=== PATIENT | female | born 1995 | race Two or more races ===

== ENCOUNTER → 2024-08-22 | Outpatient (CLI) | payer BC, SELFPAY ==
[2024-08-22 08:41] LABS: Glucose Estimated Average 97 mg/dL (80-131)
[2024-08-22 08:53] LABS: Alanine Aminotransferase 23 U/L (10-49); Albumin, Serum 4.2 gm/dL (3.5-5.0); Albumin/Globulin Ratio 1.9 (1.2-2.2); Alkaline Phosphatase 75 U/L (46-116); Anion Gap 4 (7-16); Aspartate Amino Transferase 16 U/L (0-34); BUN/Creatinine Ratio 22 Ratio (12-20); Bilirubin,Total 0.4 mg/dL (0.3-1.2); Blood Urea Nitrogen 13 mg/dL (9-23); Calcium 8.7 mg/dL (8.3-10.6); Calcium (Corrected) 8.7 mg/dL (8.5-10.1); Carbon Dioxide 27.6 mMol/L (20.0-31.0); Chloride 106 mMol/L (98-107); Creatinine (Component) 0.6 mg/dL (0.6-1.3); Globulin 2.2 gm/dL (2.3-3.5); Glucose 87 mg/dL (74-106); Osmolality,Calculated 274 (275-295); Potassium 4.6 mMol/L (3.4-5.1); Sodium 138 mMol/L (136-145); Thyroid Stimulating Hormone 1.76 uIU/mL (0.55-4.78); Total Protein 6.4 gm/dL (5.7-8.2); eGFR > 60 See Note
[2024-08-22 09:00] LABS: Syphilis Nonreactive (Nonreactive)
[2024-08-22 12:22] LABS: HIV (1&2) Antibody Rapid Non-Reactive
[2024-08-22 12:47] LABS: Chlamydia trachomatis PCR Negative (Not Detect); Neisseria Gonorrhoeae DNA PCR Negative (Not Detect); Trichomonas Negative (Negative)
== END | disposition home or self-care (01) ==
PROVIDERS: PCP Specialist; Referring Provider Specialist; Visit Provider Specialist
DX: Z20.2 Contact with and (suspected) exposure to infections with a predominantly sexual mode of transmission (principal); R51.9 Headache, unspecified; E66.09 Other obesity due to excess calories
CPT/HCPCS: 36415; 80053; 83036; 84443; 86703; 86780; 87491; 87591; 87661

== ENCOUNTER → 2024-08-27 | Outpatient (CLI) | payer BC, SELFPAY ==
[2024-08-28 10:28] LABS: BVAG Candida Negative (Negative); Bacterial Vaginosis Markers Negative (Negative); Candida glabrata Negative (Negative); Candida krusei PCR Negative (Negative); Trichomonas Negative (Negative)
== END | disposition home or self-care (01) ==
LOC: SLDO 15:09
PROVIDERS: PCP Specialist; Referring Provider Specialist; Visit Provider Specialist
DX: N76.0 Acute vaginitis (principal)
CPT/HCPCS: 81514

== ENCOUNTER → 2025-05-02 | Outpatient (CLI) | payer BC, SELFPAY ==
[2025-05-02 17:03] LABS: Beta HCG,Quantitative 14 mIU/mL (<5.0)
== END | disposition home or self-care (01) ==
LOC: COPL 15:18
PROVIDERS: PCP Specialist; Referring Provider Specialist; Visit Provider Specialist
DX: N91.2 Amenorrhea, unspecified (principal)
CPT/HCPCS: 36415; 84702

== ENCOUNTER → 2025-05-03 | Outpatient (CLI) | payer BC, SELFPAY ==
--- NOTE | 2025-05-03 14:51 | XR_ITS ---
Examination: Complete OB ultrasound, less than 14 weeks, transabdominal Date and time of exam: May 03, 2025 1521 hours INDICATIONS: Vaginal bleeding today Technique: Obstetrical ultrasound images less than 14 weeks performed via transabdominal imaging Findings: Uterus 8.8 cm Echogenic structure in the cervix 20 x 12 x 13 mm No recognizable intrauterine gestation Right ovary 2.6 cm arterial flow Left ovary 3.1 cm arterial flow IMPRESSION: Findings most consistent with spontaneous in progress, recommend short-term follow-up transvaginal pelvic sonography.
== END | disposition home or self-care (01) ==
LOC: CDIM 14:41
PROVIDERS: PCP Specialist; Referring Provider Specialist; Visit Provider Specialist
DX: O03.9 Complete or unspecified spontaneous abortion without complication (principal)
CPT/HCPCS: 76801

== ENCOUNTER → 2025-05-03 | Outpatient (CLI) | payer BC, SELFPAY ==
[2025-05-03 09:45] LABS: Beta HCG,Quantitative 11 mIU/mL (<5.0)
== END | disposition home or self-care (01) ==
LOC: COPL 08:52
PROVIDERS: PCP Specialist; Referring Provider Specialist; Visit Provider Specialist
DX: N91.2 Amenorrhea, unspecified (principal)
CPT/HCPCS: 36415; 84702

== ENCOUNTER → 2025-05-20 | Outpatient (CLI) | payer BC, SELFPAY ==
--- NOTE | 2025-05-20 11:32 | XR_ITS ---
Examination: Pelvic ultrasound, transabdominal, complete Technique: Transabdominal ultrasound of the pelvis performed using grayscale imaging Date and time of exam: May 20, 2025 1138 hours INDICATIONS: Post miscarriage 3 weeks ago FINDINGS: Uterus 10.2 cm no uterine mass or intrauterine gestation Small calcification in the cervix Endometrial stripe 0.4 cm Right ovary 2.8 cm arterial flow small follicles Left ovary 4.6 cm arterial flow 26 x 25 mm cyst IMPRESSION: Simple left ovarian cyst 26 x 25 x 25 mm
== END | disposition home or self-care (01) ==
PROVIDERS: PCP Specialist; Referring Provider Specialist; Visit Provider Specialist
DX: N83.202 Unspecified ovarian cyst, left side (principal)
CPT/HCPCS: 76856